=== PATIENT | male | born 1975 | race Caucasian/White ===

== ENCOUNTER 2019-08-20 14:28 | Observation (INO) ==
[2019-08-20] MEDS ORDERED: ASPIRIN PO ONE (15:01)
[2019-08-20] MEDS ORDERED: NITROGLYCERIN TOP ONE (15:09)
[2019-08-20 15:36] LABS: BASO# 0.03 X1000 (0.0-0.2); BASO% 0.4 % (0.0-0.8); EOS# 0.25 X1000 (0.0-0.7); EOS% 3.2 % (0.0-10.0); HEMATOCRIT 45.1 % (42.0-52.0); IMM GRAN# 0.02 X1000 (0.0-0.04); IMM GRAN% 0.3 % (0.0-0.5); LYMPH# 1.92 X1000 (1.2-3.4); LYMPH% 24.7 % (20.5-51.1); MCH 32.6 PG (27-31); MCHC 33.3 g/dL (33-37); MONO# 0.73 X1000 (0.11-0.59); MONO% 9.4 % (1.7-9.3); MPV 10.6 FL (7.4-10.4); NEUT# 4.83 X1000 (1.4-6.5); PLT 276 X1000 (130-400); RDW 12.8 % (11.5-14.5); WBC 7.78 X1000 (4.8-10.8)
--- NOTE | 2019-08-20 15:41 | Diag Imaging Result Doc PS360 ---
EXAM: CHEST-2 VIEWS HISTORY: chest pain TECHNIQUE: Two views COMPARISON: None. FINDINGS: The lungs are well expanded. The heart is not enlarged. The vessels are not distended. There are no infiltrates. No pleural effusions. IMPRESSION: No acute abnormality. Electronically signed by Parker Ash 08/20/2019 3:38 PM
[2019-08-20 15:48] LABS: INR 0.83; PROTIME 11.8 Seconds (11.0-16.0); PTT 26.5 Seconds (22.3-41.8)
[2019-08-20 15:55] LABS: AGAP 15; ALBUMIN 5.2 g/dL (3.5-5.0); ALKALINE PHOSPHATASE 97 U/L (32-122); BUN 15 mg/dL (8-22); CALCIUM 9.5 mg/dL (8.8-10.2); CHLORIDE 102 mmol/L (98-107); COSMO 277; CREATININE 0.8 mg/dL (0.7-1.2); ESTIMATED GFR > 60; GLUCOSE 108 mg/dL (70-104); GOT 35 U/L (10-34); GPT 49 U/L (10-44); POTASSIUM 4.5 mmol/L (3.5-5.1); SODIUM 138 mmol/L (136-145); TCO2 21 mmol/L (25-35); TOTAL PROTEIN 8.2 g/dL (6.3-8.3)
--- NOTE | 2019-08-20 16:42 | PROVIDER DOCUMENTATION ---
This chart was entered by Georgia Gunter Scribe, acting as scribe for Anjelica Santos MD. HPI-Chest Pain - General Chief Complaint: Chest Pain Stated Complaint: CHEST TIGHT / UPPER BACK PAIN Time Seen by Provider: 08/20/19 14:38 Source: patient Allergies/Adverse Reactions: Patient Allergies Allergy/AdvReac Type Severity Reaction Status Date / Time No Known Allergies Allergy Verified 08/20/19 14:35 - History of Present Illness-CP Nature of Presenting Problem: 43yom presents to ED cc substernal chest pressure that radiates to upper back between shoulder blades and epigastric area and lasts a few seconds at a time. Pt reports it 'comes in waves.'. Pt denies N/V/D and says nothing makes it worse or better. Pt has hx of HTN and panic attacks. He smokes 1.5 packs per day. He has never had a stress test. Location: reports: substernal Chest Pain Radiation: reports: back (between shoulder blades), epigastric Quality of Pain: reports: pressure Severity in ED: moderate, severe Onset/Duration: 1-3 hours ago Timing: still present, intermittent Context/Activities at Onset: reports: light activity Modifying Factors: improves with: nothing Associated Symptoms: reports: back pain (upper back between shoulder blades) Nitro Today/Relief: 0.4 mg x 1, provided by ED Aspirin Treatment Today: 325 mg x 1, provided by ED Prior Chest Pain/Cardiac Workup: reports: no prior chest pain Similar Symptoms Previously?: No Recently Seen Here or By Another Healthcare Provider: No Review of Systems - Adult - REVIEW OF SYSTEMS - ADULT Constitutional: reports: see HPI. denies: chills, fever, fatique Eyes: reports: no symptoms reported Ears, Nose, Mouth & Throat: reports: no symptoms reported Cardiovascular: reports: see HPI, chest pain. denies: palpitations Respiratory: reports: no symptoms reported Gastrointestinal: reports: see HPI, abdominal pain (epigastric). denies: diarrhea, nausea, vomiting Genitourinary: reports: no symptoms reported Musculoskeletal: reports: see HPI, back pain (upper between shoulder blades) Integumentary: reports: no symptoms reported Neurological: reports: no symptoms reported Psychiatric: reports: no symptoms reported Endocrine: reports: no symptoms reported Hematologic/Lymphatic: reports: no symptoms reported Allergic/Immunologic: reports: no symptoms reported All Other Systems: Reviewed and Negative Past History - Adult - PAST MEDICAL HISTORY-ADULT Review of Records: reports: Old Records Reviewed, Nursing Assessment Review, Medications Reviewed, Social history reviewed & non-contributory. Major Childhood Illnesses: reports: denies history Cardiovascular: reports: denies history Respiratory: reports: denies history Gastrointestinal: reports: denies history Obstetrical/Gynecological: reports: denies history Genitourinary: reports: denies history Musculoskeletal: reports: denies history Neurological: reports: denies history Endocrine/Immune: reports: denies history Other Conditions: reports: denies history - IMMUNIZATION STATUS Childhood Immunizations: See Nurse Assessment Flu Vaccine: See Nurse Assessment - FAMILY HISTORY Family History: reviewed, not pertinent - SOCIAL HISTORY Smoking: cigarettes, greater than 1 pack/day Provider spent 3-5 mins advising pt. on dangers of tobacco.: Discussed manners to quit use, and f/u contacts for add'l counseling. Physical Exam-General - PHYSICAL EXAM-ADULT Initial Vital Signs Reviewed: Yes - CONSTITUTIONAL General Appearance: alert, mild distress, anxious. negative: combative - EYES Eyes: PERRL/EOMI, pink conjunctivae. negative: photophobia - HEAD, EARS, NOSE, MOUTH & THROAT HENMT: normocephalic/atraumatic, moist mucous membranes. negative: angioedema - NECK Neck: normal inspection - RESPIRATORY Respiratory: chest non-tender, lungs clear, normal breath sounds. negative: stridor, wheezing - CARDIOVASCULAR Cardiovascular: normal peripheral pulses, regular rate, rhythm, no edema. negative: bradycardia, tachycardia - GASTROINTESTINAL (ABDOMEN) Abdominal Exam: normal bowel sounds, non tender, soft. negative: rigid, rebound - MUSCULOSKELETAL Back Exam: normal inspection, no CVA tenderness, no vertebral tenderness Extremity: normal inspection. negative: deformity - SKIN Integumentary: normal color. negative: diaphoresis, jaundice - PSYCHIATRIC Psych/Mental Status: oriented x 3, anxious. negative: disheveled - HEART Score HEART Score: History: Slightly Suspicious HEART Score: ECG: Non-Specific Repolarization Disturbance/LBBB/PM HEART Score: Age: < or = 45 Years HEART Score: Risk Factors for Atherosclerotic Disease: 1 or 2 Risk Factors HEART Score: Troponin: < or = Normal Limit Total HEART Score:: 2 Progress - PLAN OF CARE/RESULTS Progress/Plan/Lab Results: Vital Signs - 8 hr 08/20/19 14:29 Temperature 98 F Pulse Rate 98 H Respiratory Rate 18 Blood Pressure 168/91 O2 Sat by Pulse Oximetry 99 Laboratory Results - last 24 hr 08/20/19 08/20/19 08/20/19 14:50 14:50 14:50 WBC 7.78 RBC 4.60 L Hgb 15.0 Hct 45.1 MCV 98.0 MCH 32.6 H MCHC 33.3 RDW Std Deviation 12.8 Plt Count 276 MPV 10.6 H Immature Gran % (Auto) 0.3 Neut % (Auto) 62.0 Lymph % (Auto) 24.7 [place] % (Auto) 9.4 H Eos % (Auto) 3.2 Baso % (Auto) 0.4 Immature Gran # (Auto) 0.02 Neut # (Auto) 4.83 Lymph # (Auto) 1.92 [place] # (Auto) 0.73 H Eos # (Auto) 0.25 Baso # (Auto) 0.03 PT INR PTT (Actin FS) Sodium 138 Potassium 4.5 Chloride 102 Carbon Dioxide 21 L Anion Gap 15 BUN 15 Creatinine 0.8 Estimated GFR/1.73 m2 > 60 BUN/Creatinine Ratio 19 Glucose 108 H Calculated Osmolality 277 Calcium 9.5 Total Bilirubin 0.30 AST 35 H ALT 49 H Alkaline Phosphatase 97 Troponin T < 0.010 Ihk-V-[id number] Pept Total Protein 8.2 Albumin 5.2 H Globulin 3.0 Albumin/Globulin Ratio 2.0 08/20/19 08/20/19 14:50 14:50 WBC RBC Hgb Hct MCV MCH MCHC RDW Std Deviation Plt Count MPV Immature Gran % (Auto) Neut % (Auto) Lymph % (Auto) [place] % (Auto) Eos % (Auto) Baso % (Auto) Immature Gran # (Auto) Neut # (Auto) Lymph # (Auto) [place] # (Auto) Eos # (Auto) Baso # (Auto) PT 11.8 INR 0.83 PTT (Actin FS) 26.5 Sodium Potassium Chloride Carbon Dioxide Anion Gap BUN Creatinine Estimated GFR/1.73 m2 BUN/Creatinine Ratio Glucose Calculated Osmolality Calcium Total Bilirubin AST ALT Alkaline Phosphatase Troponin T [id number]-M-Uvikgzpoayv Pept 20 Total Protein Albumin Globulin Albumin/Globulin Ratio Orders Category Date Time Status If abnormal EKG, order: NOW Care 08/20/19 14:35 Active CHEST-2 VIEWS [RAD] Stat Exams 08/20/19 15:20 Completed BNP [PRO B-NATRIURETIC PEPTIDE] Stat Lab 08/20/19 14:50 Completed CBC WITH DIFF [HEME] Stat Lab 08/20/19 14:50 Completed COMPREHENSIVE METABOLIC PANEL [CHEM] Stat Lab 08/20/19 14:50 Completed PROTIME WITH INR [COAG] Stat Lab 08/20/19 14:50 Completed PTT [COAG] Stat Lab 08/20/19 14:50 Completed TROPONIN T Stat Lab 08/20/19 14:50 Completed Aspirin Med 08/20/19 15:01 Discontinued 325 mg PO NOW ONE Nitroglycerin Med 08/20/19 15:09 Discontinued 0.5 inch TOP NOW ONE CP/Palp <45 No Known Cardiac Hx Stat Oth 08/20/19 14:35 Ordered EKG [EKG] Stat Ther 08/20/19 14:35 Ordered Transfer/Admit Order [TRANSFER] Routine Transfer 08/20/19 16:47 Ordered Patient reeval and relieved by Nitro. Still very anxious, could be anxiety. Has risk factors with HTN and smoker. Story relatively concerning. Spoke to patient about admission given risk factors and he agrees. Spoke to Dr Vora, senior contract specialist for hospitalist who accepted patient for admission. Further orders to be placed by their team. Result Diagrams: 08/20/19 14:50 08/20/19 14:50 - EKG 1 Time of EKG reading by physician:: 15:20 EKG Read and Signed by:: Anjelica Santos EKG Interpretation (*Must complete 3 of following elements*): Abnormal Rate: 91 Rhythm: NSR QRS: normal ST Wave: non-specific ST changes - XRAY 1 XRAY: Bilateral XRAY Study: Chest Impression: See EMR Report (IMPRESSION: No acute abnormality. Electronically signed by Parker Ash 08/20/2019 3:38 PM) - CONSULTS/PCP/HOSPITALIST Notification #1 *Consult/PCP/Hospitalist*: Dr Vora Time Discussed: 16:50 Consult Disposition: Admit Departure - Departure Date of Disposition Decision: 08/20/19 Time of Disposition Decision: 16:50 DIAGNOSIS: Atypical chest pain Disposition: HOME 01 Certified Medical Emergency: Emergent Condition: Stable Referrals and Follow-Ups: Allen Bobby [Primary Care Provider] - Discharge Education: Steps to Quit Smoking, [id number] - Critical Care Note This patient required my direct & personal management of CC.: No Attestation - Physician/ [facility] Attestation Patient care was provided by Advanced Practice Provider:: No The physician spent face to face time with patient:: Yes Advanced Practice Provider documentation review:: Supervising physician onsite and consulted in the evaluation and care of this patient. The physician did have a face to face encounter with the patient. This chart was documented by the indicated scribe, (Georgia Gunter, Tristan) and accurately reflects the services I performed and decisions made by me, Anjelica Santos MD, as attested by the provider's signature.
--- NOTE | 2019-08-20 17:04 | EKG Report ---
Test Performed on : 08/20/2019 2:41:46 PM Test Reason : chest pressure htn Blood Pressure : / mmHG Vent. Rate : 091 BPM Atrial Rate : 091 BPM P-R Int : 114 ms QRS Dur : 084 ms QT Int : 358 ms P-R-T Axes : 036 067 029 degrees QTc Int : 440 ms Normal sinus rhythm. Nonspecific ST and T wave abnormality Abnormal ECG No previous ECGs available Unconfirmed Result
[2019-08-20] MEDS ORDERED: TYLENOL PO PRN (20:28)
[2019-08-20] MEDS ORDERED: ZOFRAN IV PRN (20:28)
[2019-08-20] MEDS: NITROGLYCERIN TOP SCH (21:55)
[2019-08-20] MEDS ORDERED: NITROGLYCERIN SL PRN (23:33)
[2019-08-20] MEDS ORDERED: MORPHINE IV PRN (23:33)
[2019-08-21] MEDS: NITROGLYCERIN TOP SCH (05:51)
--- NOTE | 2019-08-21 11:35 | PROGRESS NOTE ---
DATE: 08/21/2019 Treadmill GXT EKG interpretation and administration SUBJECTIVE: Baseline heart rate 79, baseline blood pressure 168/72. Carries a diagnosis of hypertension; I do not think he had anything there now. His EKG today shows some questionable Q- waves in 2, 3 and AVF. I did not appreciate those previously, as well as V 5, V 6. He does meet I think criteria for LVH. He has got close to 30 mm of R-wave and S-wave between V 2, V 5, V 3, V 6. The patient underwent treadmill testing per modified Cm protocol, which did not show any ischemic changes. He did have some ST depression in lead 3 with more elevation, not clear ST depression. I think a lot of these were related to his LVH and strain pattern associated with that. In V 5 and V 6, he did have some depression, but it was not a classic ischemic depression, more of a strain pattern. He did not develop chest pressure during the test. The test was felt to be clinically negative and electrically negative. Peak heart rate was assumed at 164. He tolerated that for a good 2 minutes, so his exercise capacity was good. Peak blood pressure 170/110. He did not have a hypertensive response per se, but test was felt to be overall negative. Myocardial perfusion will be reported separately. cc: Obed Vora MD MTDD
[2019-08-21] MEDS ORDERED: NICODERM PATCH TD PRN (13:40)
[2019-08-21] MEDS ORDERED: PRINIVIL PO ONE (14:19)
--- NOTE | 2019-08-21 15:04 | Diag Imaging Result Document ---
PROCEDURE NAME: MYOCARDIAL PERF SCAN, STR/REST - 08/21/2019 SUMMARY: The patient was administered 11.7 mCi of technetium-99m sestamibi, after which resting cardiac images were obtained. The patient was subsequently exercised on the treadmill according to a Cm protocol and exercised for a total of 9 minutes, achieving a maximum workload of stage III and 10.1 METS. With exercise, the heart increased from 83 beats per minute to 164 beats per minute, representing 91% of maximal age predicted heart rate. The blood pressure increased from 156/102 to 168/121. With exercise, the patient denied chest discomfort. At peak exercise, the patient was administered 33.9 mCi of technetium-99m sestamibi, after which gated stress cardiac images were obtained. Baseline ECG demonstrated sinus rhythm, voltage criteria for left ventricular hypertrophy, and nonspecific ST and T-wave abnormality. With exercise, baseline ST and T-wave abnormality did not change significantly. SPECT images were reconstructed in the short, horizontal long, and vertical long axis. Review of these images demonstrated homogeneous uptake of radiopharmaceutical in both stress and resting images. Gated images demonstrate a calculated left ventricular ejection fraction of 74% with symmetrical wall motion. CONCLUSIONS: 1. Good aerobic capacity. Target heart rate achieved. 2. Clinically negative for chest pain. 3. Electrocardiographically baseline ST and T-wave abnormality did not change significantly with exercise. 4. Normal exercise sestamibi images. cc: MD Obed Cochran MD
[2019-08-21 15:40] VITALS: BP 162/98
--- NOTE | 2019-08-21 16:00 | ECHO REPORT ---
ORDER DATE: 08/21/2019 ECHOCARDIOGRAPHIC MEASUREMENTS: 1. Septal thickness 1.2. 2. Left ventricular internal diameter diastole 4.7. 3. Posterior wall thickness 1.1. 4. Left ventricular internal diameter systole 2.6. 5. Left atrium 3.4. 6. Aortic root 3.5. SUMMARY: 1. Adequate quality study. 2. Aortic valve is trileaflet and opens normally on 2-dimensional images. Peak gradient across the aortic valve is less than 10 mmHg. Mitral, tricuspid, and pulmonic valves are without evidence of structural abnormality with trace mitral regurgitation and trace tricuspid regurgitation. Aortic root is normal in size. 3. Normal left chamber size with borderline concentric left hypertrophy is suggested. Estimated left ventricular ejection fraction appears to be at least 65%. No regional wall motion abnormalities evident. Left atrium, right atrium, right ventricle are normal in size with normal right ventricular systolic function. 4. No pericardial effusion. 5. Appearance of inferior vena cava suggests normal central venous pressure. cc: MD Obed Cochran MD
[2019-08-21] MEDS ORDERED: ZOLOFT PO SCH (21:00)
[2019-08-21] MEDS ORDERED: PRINIVIL PO SCH ×2 (21:00)
--- NOTE | 2019-08-21 21:53 | HISTORY AND PHYSICAL ---
CHIEF COMPLAINT: Chest pressure. HISTORY OF PRESENT ILLNESS: This is a 43-year-old male who came in for evaluation for persistent chest pressure radiating to his upper back between his shoulder blades, epigastric area, lasting a few seconds at a time. The pain was never very severe. It did not rate radiate to his face or arm. No nausea, no vomiting. No dyspnea. Workup in the ER was really unremarkable. He does have a history of hypertension. He does smoke. He has a history of anxiety as well. He has never had a cardiac workup before. He has no family history positive. The patient was placed in observation for chest pain. PAST MEDICAL HISTORY: Hypertension, otherwise negative. PAST SURGICAL HISTORY: Denies. FAMILY HISTORY: No first-degree relatives with CAD. SOCIAL HISTORY: He smokes about a pack and a half a day. He has done that for 20 years, giving him [id number]. No alcohol. ALLERGIES: No known drug allergies. REVIEW OF SYSTEMS: Otherwise negative x12 point review of systems. PHYSICAL EXAMINATION: VITAL SIGNS: Blood pressure 181/122, heart rate of 86, respiratory rate 19, temperature 98.4 degrees, 98% on room air. CARDIOVASCULAR: Regular rate and rhythm. PULMONARY: Bilateral breath sounds. Clear to auscultation. GASTROINTESTINAL: Soft, nontender, nondistended. Bowel sounds are positive. NEUROLOGIC: Nonfocal. MUSCULOSKELETAL: With 4/5 in all 4 extremities. LABORATORY DATA: White count 7, hemoglobin and hematocrit 15 and 45, platelets 276,000. Basic was normal. AST and ALT were mildly elevated at 35 and 49. PROBLEM LIST/ASSESSMENT: This is a 43-year-old male with history of hypertension which appears to be not completely controlled, presenting with atypical chest pain. 1. Atypical chest pain. We will continue to monitor closely. Rule out with serial enzymes. Get a stress test in the morning assuming cardiacs are negative. 2. Hypertension. We will likely need to adjust up his lisinopril because I do not think his blood pressure is under complete control and he does have evidence of LVH. 3. Anxiety. We will continue his Zoloft and follow. May need additional medications. 4. Tobacco abuse. We advised on cessation, especially in light of his concurrent issues, and we will follow. cc: Obed Vora MD
--- NOTE | 2019-08-22 14:36 | DISCHARGE SUMMARY ---
ADMISSION DATE: 08/20/2019 DISCHARGE DATE: 08/21/2019 PRIMARY CARE PHYSICIAN: Dr. Allen Bobby. ADMISSION DIAGNOSIS: Chest pain, atypical. DISCHARGE DIAGNOSIS: Chest pain, ruled out by myocardial perfusion scan. SUMMARY OF FINDINGS: This is a 43-year-old male who presented to the ER with complaints of substernal chest pressure that radiated to the upper back, between the shoulder blades and epigastric area, that came in "waves." He is noted to be a pack and a half a day smoker of cigarettes. Had never had a stress test. His cardiac enzymes x4 sets were negative. We did a myocardial perfusion scan today that was read as a normal stress test, so it is now felt that he can safely be discharged home. DISCHARGE MEDICATIONS: Include lisinopril 20 mg p.o. every p.m. FOLLOWUP: He needs to follow up with his primary care physician in the next 1 to 2 weeks, and call the office for an appointment. All discharge instructions were reviewed with the patient, and he verbalized understanding. TIME SPENT: A 35-minute discharge. Dictated by MONIKA Joyner for Obed Vora MD cc: MONIKA Joyner MD David Campbell
== END 2019-08-21 15:40 | disposition home or self-care (01) ==
LOC: EDIPHOLD 14:28 → P.ED 14:28 → SUATTDRO 16:51 → EDIPHOLD 08-21 15:40
PROVIDERS: ATTEND Internal Medicine